=== PATIENT | female | born 1965 | race Two or more races ===

== ENCOUNTER 2017-06-11 15:24 | Emergency (ER) | payer MEDICAID ==
[~2017-06-11] VITALS: Ht 157.5 cm; Wt 86.2 kg
[2017-06-11] MEDS ORDERED: KETOROLAC TROMETHAMINE INJ 30 MG/ML VIAL ONE (16:14)
[2017-06-11] MEDS ORDERED: DIAZEPAM 5 MG TABLET ONE (16:15)
--- NOTE | 2017-06-11 16:18 | NUR ---
PT REC'D MEDICATION ORDERED.
--- NOTE | 2017-06-11 16:27 | NUR ---
PT LEFT FOR CT.
[2017-06-11] MEDS ORDERED: KETOROLAC TROMETHAMINE INJ 30 MG/ML VIAL IM ONE (16:30)
[2017-06-11] MEDS ORDERED: DIAZEPAM 10 MG TABLET PO ONE (16:30)
--- NOTE | 2017-06-11 16:57 | NUR ---
PT RETURNED FROM CT.
[2017-06-11 17:37] VITALS: BP 124/75
== END 2017-06-11 17:37 | disposition home or self-care (01) ==
LOC: ER 15:26
DX: S33.5XXA Sprain of ligaments of lumbar spine, initial encounter (principal); E11.9 Type 2 diabetes mellitus without complications; W01.0XXA Fall on same level from slipping, tripping and stumbling without subsequent striking against object, initial encounter; Y93.89 Activity, other specified; Y92.89 Other specified places as the place of occurrence of the external cause; Y99.8 Other external cause status
CPT/HCPCS: 72110-TC; A4606; J1885; Z7610

== ENCOUNTER 2018-01-31 20:17 | Emergency (ER) | payer MEDICAID ==
[~2018-01-31] VITALS: Ht 157.5 cm; Wt 86.2 kg
--- NOTE | 2018-01-31 20:17 | NUR ---
LISA C/O "FEELING ITCHY AND RASH S/P EATING CHEESE AT [facility] X2 WEEKS AGO" TOOK BENADRYL LAST NIGHT X1. RASH IS NOTED GENERALIZED ON THE BODY BUT PRIMARILY ON BILATERAL ARMS AND HEAD. VSS NAD A/OX4 ABLE TO MAKE NEEDS KNOWN.
[2018-01-31 20:38] VITALS: BP 131/59
[2018-01-31] MEDS ORDERED: FAMOTIDINE (20 MG) 20 MG TABLET ONE (20:59)
[2018-01-31] MEDS ORDERED: FAMOTIDINE (20 MG) 20 MG TABLET PO ONE (21:00)
[2018-01-31] MEDS ORDERED: predniSONE 20 MG TABLET ONE (21:00)
[2018-01-31] MEDS ORDERED: predniSONE 20 MG TABLET PO ONE (21:00)
== END 2018-01-31 21:12 | disposition home or self-care (01) ==
LOC: ER 20:17
DX: L50.9 Urticaria, unspecified (principal); E11.9 Type 2 diabetes mellitus without complications; Z60.2 Problems related to living alone
CPT/HCPCS: A4606; Z7610

== ENCOUNTER 2018-04-04 16:00 | Emergency (ER) | payer MEDICAID ==
[~2018-04-04] VITALS: Ht 154.9 cm; Wt 85.3 kg
[2018-04-04] MEDS ORDERED: KETOROLAC TROMETHAMINE 15 MG/ML VIAL ONE (16:16)
--- NOTE | 2018-04-04 16:21 | NUR ---
BIB DAUGHTER C/O HYPERGLYCEMIA AB=322HQ/DL 25 MINUTES AGO. SEEN BY FOR EVAL. VSS. URINE SAMPLE OBTAINED. SAFETY AND COMFORT MEASURES PROVIDED. WILL MONITOR.
[2018-04-04] MEDS ORDERED: KETOROLAC TROMETHAMINE INJ 30 MG/ML VIAL IV ONE (16:30)
[2018-04-04] MEDS ORDERED: IV NS 0.9% 1,000 ML BAG IV ONE (16:30)
[2018-04-04 16:31] LABS: BASOPHILS % (AUTO) 0.6 % (0.0-2.0); EOSINOPHILS % (AUTO) 5.3 % (0.0-6.0); HEMATOCRIT 47 % (33-45); LYMPHOCYTES # (AUTO) 2.6 /CMM (0.8-4.8); MEAN CORPUSCULAR HEMOGLOBIN 30 PG (26.0-33.0); MEAN CORPUSCULAR HGB CONC 32 g/dl (31.0-36.0); MEAN CORPUSCULAR VOLUME 94 fL (82-100); MONOCYTES # (AUTO) 0.5 /CMM (0.1-1.30); MONOCYTES % (AUTO) 6.7 % (2.0-12.0); NEUTROPHILS # (AUTO) 3.7 /CMM (1.8-8.9); NEUTROPHILS % (AUTO) 51.4 % (43.0-81.0); PLATELET COUNT (AUTO) 177 /CMM (150-450); RDW COEFFICIENT OF VARIATION 13.2 (11.5-15.0); RED BLOOD CELL COUNT(AUTO) 4.96 MIL/uL (4.0-5.2); WHITE BLOOD COUNT (AUTO) 7.1 K/uL (4.3-11.0)
[2018-04-04 16:45] LABS: CALCIUM, SERUM 8.8 mg/dL (8.5-10.1); CREATININE 0.9 mg/dL (0.6-1.3)
[2018-04-04 17:08] LABS: APPEARANCE,URINE Clear (CLEAR); BILIRUBIN,URINE Negative (NEGATIVE); BLOOD, URINE Negative Ery/uL (NEGATIVE); COLOR,URINE Yellow (YELLOW); KETONES,URINE Trace (NEGATIVE); LEUKOCYTE ESTERASE ,URINE Negative (NEGATIVE); NITRITE, URINE Negative (NEGATIVE); PH,URINE 6.5 (5.0-8.0); PROTEIN,URINE Negative (NEGATIVE); UGLUCOSE >=1000 mg/dL (NEGATIVE); UROBILINOGEN,URINE 0.2 EU/dL (0.2)
[2018-04-04 17:53] VITALS: BP 120/78
== END 2018-04-04 17:54 | disposition home or self-care (01) ==
LOC: ER 16:01
DX: E11.65 Type 2 diabetes mellitus with hyperglycemia (principal); Z60.2 Problems related to living alone
CPT/HCPCS: 36415; 80048; 81001; 82962; 85025; 96361; 96374; 99284; A4606; J1885; J7030; Z7610; 81000-TC

== ENCOUNTER 2018-05-03 16:59 | Emergency (ER) | payer MEDICAID ==
[~2018-05-03] VITALS: Ht 157.5 cm; Wt 84.4 kg
--- NOTE | 2018-05-03 17:00 | NUR ---
Presents to er c/o mid lower back pain s/p slipped/fall -ko. a/ox 4, breathing even and unlabored. no sob, nad, vitals stable. patient ambulatory with assist. safety and comfort measures in place. awaiting md orders.
--- NOTE | 2018-05-03 17:20 | NUR ---
imelda sawant at bedside for eval.
[2018-05-03] MEDS ORDERED: IBUPROFEN 600 MG TABLET PO ONE ×2 (17:30→17:32)
--- NOTE | 2018-05-03 17:34 | NUR ---
medicated patient per md orders.
--- NOTE | 2018-05-03 17:51 | NUR ---
PT. VERBALIZED UNDERSTANDING OF AFTERCARE INSTRUCTIONS.Patient discharged to home in stable condition. Written and verbal after care instructions given. Patient verbalizes understanding of instruction.
[2018-05-03 17:54] VITALS: BP 114/79
== END 2018-05-03 17:55 | disposition home or self-care (01) ==
LOC: ER 17:03
DX: M54.5 Low back pain (principal); E11.9 Type 2 diabetes mellitus without complications; Z60.2 Problems related to living alone
CPT/HCPCS: 99282; A4606; Z7610

== ENCOUNTER 2018-12-02 20:52 | Emergency (ER) | payer SELFPAY ==
[~2018-12-02] VITALS: Ht 157.5 cm; Wt 87.1 kg
[2018-12-02] MEDS ORDERED: predniSONE 20 MG TABLET ONE (21:58)
[2018-12-02] MEDS ORDERED: predniSONE 20 MG TABLET PO ONE (22:00)
[2018-12-02] MEDS ORDERED: IPRATROPIUM NEB FS 0.5 MG/2.5 ML AMPUL.NEB NEB ONE (22:00)
[2018-12-02] MEDS ORDERED: ALBUTEROL FS 2.5 MG/3 ML VIAL.NEB NEB ONE (22:00)
--- NOTE | 2018-12-02 22:03 | NUR ---
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
--- NOTE | 2018-12-02 22:03 | NUR ---
RT CALLED FOR BREATHING TX.
--- NOTE | 2018-12-02 22:03 | NUR ---
PT PRESENTED TO THE ER WITH A C/O COUGH WITH CONGESTIONS. PT SPEAKS CHILEAN WITH A LITTLE BURUNDIAN. PT IS C/O SEASONAL ALLERGIES AND COUGH WITH CONGESTION. PT IS ABLE TO SPEAK IN FULL SENTENCES AND RESP ARE EVEN AND UNLABORED.
[2018-12-02] MEDS ORDERED: ALBUTEROL FS 2.5 MG/3 ML VIAL.NEB ONE (22:19)
[2018-12-02] MEDS ORDERED: IPRATROPIUM NEB FS 0.5 MG/2.5 ML AMPUL.NEB ONE (22:19)
--- NOTE | 2018-12-02 23:48 | NUR ---
Patient discharged to home in stable condition. Written and verbal after care instructions given. Patient verbalizes understanding of instruction AND RX. PT REC'D A COPY OF THE LABS AND CXR FINDINGS. PT AMBULATED OUT WITH A STEADY GAIT. VSS. NAD NOTED. RESP EVEN AND UNLABORED. PT'S FRIEND IS DRIVING PT HOME.
[2018-12-02 23:50] VITALS: BP 132/56
== END 2018-12-02 23:50 | disposition home or self-care (01) ==
LOC: ER 20:59
DX: J45.909 Unspecified asthma, uncomplicated (principal); E11.9 Type 2 diabetes mellitus without complications; Z60.2 Problems related to living alone
CPT/HCPCS: 71045; 87804 ×2; 94644; 99285; J7512; 87400

== ENCOUNTER 2019-01-03 19:05 | Emergency (ER) | payer MEDICAID ==
[~2019-01-03] VITALS: Ht 157.5 cm; Wt 87.1 kg
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
--- NOTE | 2019-01-03 22:03 | NUR ---
Patient discharged to home in stable condition. Written and verbal after care instructions given. Patient verbalizes understanding of instruction.
[2019-01-03 22:06] VITALS: BP 119/77
== END 2019-01-03 22:08 | disposition home or self-care (01) ==
LOC: ER 19:09
DX: K29.60 Other gastritis without bleeding (principal); J45.909 Unspecified asthma, uncomplicated; E11.9 Type 2 diabetes mellitus without complications; Z60.2 Problems related to living alone
CPT/HCPCS: 82962-TC

== ENCOUNTER 2019-02-13 18:37 | Emergency (ER) | payer MEDICAID ==
[~2019-02-13] VITALS: Ht 157.5 cm; Wt 90.7 kg
[2019-02-13 18:37] VITALS: BP 132/83
[2019-02-13] MEDS ORDERED: KETOROLAC TROMETHAMINE INJ 60 MG/2 ML VIAL IM ONE ×2 (19:29→19:47)
[2019-02-13] MEDS: KETOROLAC TROMETHAMINE INJ 60 MG/2 ML VIAL IM ONE (19:49)
== END 2019-02-13 21:25 | disposition home or self-care (01) ==
LOC: ER 18:38
DX: M75.31 Calcific tendinitis of right shoulder (principal); E11.9 Type 2 diabetes mellitus without complications; J45.909 Unspecified asthma, uncomplicated; Z60.2 Problems related to living alone
CPT/HCPCS: 73030; 96372; 99283; J1885

== ENCOUNTER 2019-08-26 08:44 | Emergency (ER) | payer SELFPAY ==
[~2019-08-26] VITALS: Ht 157.5 cm; Wt 82.6 kg
[2019-08-26 08:54] VITALS: BP 132/82
--- NOTE | 2019-08-26 09:00 | NUR ---
Back/leg/side pain x 1year after fall. Worse within the last 3 weeks. Patient a/ox4, breathing even and unlabored, no sob noted, ambulatory with steady gait. No distress noted.
--- NOTE | 2019-08-26 10:06 | NUR ---
dr. johnson at bedside for eval.
[2019-08-26] MEDS ORDERED: KETOROLAC TROMETHAMINE INJ 30 MG/ML VIAL IM ONE (10:30)
[2019-08-26] MEDS ORDERED: CYCLOBENZAPRINE 10 MG TABLET PO ONE (10:30)
[2019-08-26] MEDS ORDERED: ACETAMINOPHEN ES 500 MG TABLET PO ONE (10:30)
[2019-08-26] MEDS ORDERED: KETOROLAC TROMETHAMINE INJ 30 MG/ML VIAL ONE (10:38)
[2019-08-26] MEDS ORDERED: ACETAMINOPHEN ES 500 MG TABLET ONE (10:38)
[2019-08-26] MEDS ORDERED: CYCLOBENZAPRINE 10 MG TABLET ONE (10:38)
== END 2019-08-26 11:13 | disposition home or self-care (01) ==
LOC: ER 08:44
DX: M54.5 Low back pain (principal); M54.6 Pain in thoracic spine; M54.2 Cervicalgia; J45.909 Unspecified asthma, uncomplicated; E11.9 Type 2 diabetes mellitus without complications; Z60.2 Problems related to living alone
CPT/HCPCS: 96372; 99283; J1885

== ENCOUNTER 2021-06-20 06:32 | Emergency (ER) | payer MEDICAID ==
[~2021-06-20] VITALS: Ht 157.5 cm; Wt 79.8 kg
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
[2021-06-20] MEDS ORDERED: PROCHLORPERAZINE EDISYLATE 10 MG/2 ML VIAL IVP ONE (07:30)
[2021-06-20] MEDS ORDERED: IV NS 0.9% 500 ML BAG IV ONE (07:30)
[2021-06-20] MEDS ORDERED: KETOROLAC TROMETHAMINE INJ 30 MG/ML VIAL IV ONE (07:30)
[2021-06-20] MEDS ORDERED: diphenhydrAMINE HCL 50 MG/ML VIAL IV ONE (07:30)
--- NOTE | 2021-06-20 07:40 | NUR ---
SALINE LOCK ESTABLISHED, BLOOD DRAWN AND SENT TO LAB
[2021-06-20] MEDS ORDERED: PROCHLORPERAZINE EDISYLATE 10 MG/2 ML VIAL ONE (07:44)
[2021-06-20] MEDS ORDERED: KETOROLAC TROMETHAMINE INJ 30 MG/ML VIAL ONE (07:44)
[2021-06-20] MEDS ORDERED: diphenhydrAMINE HCL 50 MG/ML VIAL ONE (07:44)
[2021-06-20 08:13] LABS: BASOPHILS % (AUTO) 0.6 % (0.0-2.0); EOSINOPHILS % (AUTO) 4.9 % (0.0-6.0); HEMATOCRIT 48 % (33-45); HEMOGLOBIN 15.6 g/dL (11.5-14.8); LYMPHOCYTES # (AUTO) 1.7 K/uL (0.8-4.8); LYMPHOCYTES % (AUTO) 25.1 % (20.0-44.0); MEAN CORPUSCULAR HGB CONC 33 g/dl (31.0-36.0); MEAN CORPUSCULAR VOLUME 95 fL (82-100); MONOCYTES # (AUTO) 0.4 K/uL (0.1-1.30); MONOCYTES % (AUTO) 5.8 % (2.0-12.0); NEUTROPHILS # (AUTO) 4.2 K/uL (1.8-8.9); NEUTROPHILS % (AUTO) 63.6 % (43.0-81.0); PLATELET COUNT (AUTO) 185 K/uL (150-450); RED BLOOD CELL COUNT(AUTO) 4.99 MIL/uL (4.0-5.2); WHITE BLOOD COUNT (AUTO) 6.7 K/uL (4.3-11.0)
[2021-06-20 08:27] LABS: CALCIUM, SERUM 8.6 mg/dL (8.5-10.1); CREATININE 0.6 mg/dL (0.6-1.3); POTASSIUM 4.2 mmol/L (3.5-5.1)
[2021-06-20] MEDS ORDERED: LORAZEPAM INJ 2 MG/ML VIAL IV ONE (09:30)
[2021-06-20] MEDS ORDERED: LORAZEPAM INJ 2 MG/ML VIAL ONE (09:36)
[2021-06-20] MEDS ORDERED: BUTA1CAP46 PO (10:21)
--- NOTE | 2021-06-20 10:34 | NUR ---
IV removed. Catheter intact and site benign. Pressure and 4x4 applied to site. No bleeding noted.Patient discharged to home in stable condition. Written and verbal after care instructions given. Patient verbalizes understanding of instruction.
[2021-06-20 10:35] VITALS: BP 154/87
== END 2021-06-20 10:35 | disposition home or self-care (01) ==
LOC: ER 06:35
DX: R51.9 Headache, unspecified (principal); F41.9 Anxiety disorder, unspecified; R94.31 Abnormal electrocardiogram [ECG] [EKG]; J45.909 Unspecified asthma, uncomplicated; E11.9 Type 2 diabetes mellitus without complications; Z60.2 Problems related to living alone
CPT/HCPCS: 36415; 70450; 80048; 85025; 85652; 93005; 96374; 96375; 99285; J0780; J1200; J1885; J2060; J7030

== ENCOUNTER → 2021-12-25 | Emergency (ER) | payer MEDICAID ==
[~2021-12-25] MED LIST: BUTA1CAP46 PO; IBUPROFEN 600 MG TABLET PO ONE
--- NOTE | 2021-12-25 21:48 | NUR ---
PATIENT IS NO WHERE TO BE FOUND
== END | disposition left against medical advice (07) ==
LOC: ER 21:44
DX: Z53.21 Procedure and treatment not carried out due to patient leaving prior to being seen by health care provider (principal)

== ENCOUNTER 2022-05-04 05:32 | Emergency (ER) | payer MEDICAID, OTHER ==
[~2022-05-04] VITALS: Ht 157.5 cm; Wt 79.4 kg
[~2022-05-04 05:32] MED LIST changes: -IBUPROFEN 600 MG TABLET PO ONE
--- NOTE | 2022-05-04 06:10 | NUR ---
TO ER BED 3. BIBS. L & R FRONTAL HEADACHE X 1 MONTH. PT IS ALERT AND ORIENTED. RR EVEN AND NONLABORED. CONNECTED TO MONITOR. AWAITING MD DOOLEY
[2022-05-04] MEDS ORDERED: diphenhydrAMINE HCL 50 MG/ML VIAL ONE (06:25)
[2022-05-04] MEDS ORDERED: SUMATRIPTAN SUCCINATE 6 MG/0.5 ML VIAL SQ ONE ×2 (06:26→06:30)
[2022-05-04] MEDS ORDERED: diphenhydrAMINE HCL 50 MG/ML VIAL IV ONE (06:30)
--- NOTE | 2022-05-04 06:30 | NUR ---
LAB AT BEDSIDE
[2022-05-04 07:01] LABS: BASOPHILS % (AUTO) 0.4 % (0.0-2.0); HEMATOCRIT 43 % (33-45); HEMOGLOBIN 14.1 g/dL (11.5-14.8); LYMPHOCYTES # (AUTO) 2.2 K/uL (0.8-4.8); LYMPHOCYTES % (AUTO) 26.7 % (20.0-44.0); MEAN CORPUSCULAR HGB CONC 33 g/dl (31.0-36.0); MEAN CORPUSCULAR VOLUME 94 fL (82-100); MONOCYTES # (AUTO) 0.5 K/uL (0.1-1.30); MONOCYTES % (AUTO) 6.7 % (2.0-12.0); NEUTROPHILS % (AUTO) 61.2 % (43.0-81.0); PLATELET COUNT (AUTO) 192 K/uL (150-450); RED BLOOD CELL COUNT(AUTO) 4.51 MIL/uL (4.0-5.2); WHITE BLOOD COUNT (AUTO) 8.1 K/uL (4.3-11.0)
[2022-05-04 07:10] LABS: CALCIUM, SERUM 8.9 mg/dL (8.5-10.1); CREATININE 0.6 mg/dL (0.6-1.3); POTASSIUM 3.8 mmol/L (3.5-5.1)
[2022-05-04] MEDS ORDERED: SUMA50TA PO (08:00)
--- NOTE | 2022-05-04 08:18 | NUR ---
Patient discharged to home in stable condition. Written and verbal after care instructions given. Patient verbalizes understanding of instruction.
[2022-05-04 08:19] VITALS: BP 138/80
== END 2022-05-04 08:19 | disposition home or self-care (01) ==
LOC: ER 05:41
DX: R51.9 Headache, unspecified (principal); J45.909 Unspecified asthma, uncomplicated; E11.9 Type 2 diabetes mellitus without complications; Z88.8 Allergy status to other drugs, medicaments and biological substances; Z79.899 Other long term (current) drug therapy
CPT/HCPCS: 99284; 70450; 96372; 85025; 80048; 36415; J3030; J1200

== ENCOUNTER 2023-07-03 18:13 | Emergency (ER) | payer OTHER ==
[~2023-07-03 18:13] MED LIST changes: +SUMA50TA PO
== END 2023-07-03 23:18 | disposition left against medical advice (07) ==
LOC: ER 18:18
DX: M25.569 Pain in unspecified knee (principal); Z53.21 Procedure and treatment not carried out due to patient leaving prior to being seen by health care provider